=== PATIENT | female | born 1980 | race Caucasian/White ===

== ENCOUNTER 2017-05-05 08:44 | Emergency (ER) | payer MEDICAID ==
[~2017-05-05] VITALS: Ht 160 cm; Wt 102.9 kg
[~2017-05-05 08:44] MED LIST: CLARITIN 1010 MG/TAB PO; CLEOCIN HCL300 MG PO; DOXYCYCLINE 10100 MG PO; LEVAQUIN 5500 MG/TA1 PO; MOBIC 7.5MG7.5 MG PO; MUSCLE RELAXER; NAPROSYN 2250 MG/TAB PO; NO HOME MEDICATIONS; NORCO 325 MG-51 TAB PO; NORCO 325 MG-7.1 TAB PO; PROVENTIL0.09 MG/A1 IH; SALINE; ZITHROMAX 250M250 MG PO; ZITHROMAX Z PA250 MG PO; ZOFRAN ODT4 MG PO
[2017-05-05 08:49] VITALS: BP 120/69; TEMP 98.9
[2017-05-05] MEDS ORDERED: PROAIR HFA0.09 MG/AC IH (08:53)
[2017-05-05 09:55] LABS: PH 5 (5-8); URINE APPEARANCE Hazy; URINE BACTERIA Rare /hpf; URINE BILIRUBIN Negative (NEGATIVE); URINE BLOOD Negative (NEGATIVE); URINE COLOR Amber; URINE GLUCOSE Negative (NEGATIVE); URINE KETONE Trace (NEGATIVE); URINE RBC 0-2 /hpf; URINE UROBILINOGEN >=4.0 mg/dL (NEGATIVE)
[2017-05-05] MEDS ORDERED: ALBUTEROL0.83 MG/ML IH (10:04)
[2017-05-05] MEDS ORDERED: ZITHROMAX Z PA250 MG PO (10:04)
[2017-05-05] MEDS ORDERED: PREDNISONE20 MG PO (10:04)
[2017-05-05 10:17] VITALS: PULSE 78
== END 2017-05-05 10:20 | disposition home or self-care (01) ==
LOC: COL.ER 08:44
PROVIDERS: Physician Assistant
DX: J98.01 Acute bronchospasm (principal); F17.210 Nicotine dependence, cigarettes, uncomplicated; Z98.51 Tubal ligation status

== ENCOUNTER 2018-10-09 19:33 | Emergency (ER) | payer SELFPAY | END 2018-10-09 21:59 | disposition home or self-care (01) | LOC: COL.ER 19:33 | DX: J45.909 Unspecified asthma, uncomplicated (principal); F17.210 Nicotine dependence, cigarettes, uncomplicated; Z98.51 Tubal ligation status ==

== ENCOUNTER 2018-12-09 12:01 | Emergency (ER) | payer MEDICAID ==
[~2018-12-09] VITALS: Ht 160 cm; Wt 106.8 kg
[~2018-12-09 12:01] MED LIST changes: +ALBUTEROL0.83 MG/ML IH; +PREDNISONE20 MG PO; +PROAIR HFA0.09 MG/AC IH
[2018-12-09 12:16] VITALS: BP 157/72; PULSE 85; TEMP 98
[2018-12-09] MEDS ORDERED: PREDNISONE20 MG PO (13:00)
[2018-12-09] MEDS ORDERED: ZITHROMAX Z PA250 MG PO (13:00)
[2018-12-09] MEDS ORDERED: PROAIR HFA0.09 MG/AC IH (13:07)
== END 2018-12-09 13:12 | disposition home or self-care (01) ==
LOC: COL.ER 12:01
DX: J45.909 Unspecified asthma, uncomplicated (principal); H66.93 Otitis media, unspecified, bilateral; F17.210 Nicotine dependence, cigarettes, uncomplicated; Z88.0 Allergy status to penicillin; Z98.51 Tubal ligation status

== ENCOUNTER 2019-06-23 09:01 | Emergency (ER) | payer MEDICAID ==
[~2019-06-23] VITALS: Ht 160 cm; Wt 100.9 kg
[2019-06-23 09:07] VITALS: BP 144/86; TEMP 98.1
[2019-06-23] MEDS ORDERED: VALTREX1 GM PO (09:42)
[2019-06-23 10:15] VITALS: PULSE 70
== END 2019-06-23 10:15 | disposition home or self-care (01) ==
LOC: COL.ER 09:01
DX: B02.9 Zoster without complications (principal); J45.909 Unspecified asthma, uncomplicated; F17.210 Nicotine dependence, cigarettes, uncomplicated; Z98.51 Tubal ligation status

== ENCOUNTER → 2022-05-05 | Outpatient (CLI) | payer MEDICAID ==
[~2022-05-05] MED LIST changes: +OMNICEF 300MG300 MG PO; +VALTREX1 GM PO
== END ==
LOC: COL.RAD 11:41
DX: M54.2 Cervicalgia (principal)

== ENCOUNTER 2022-05-08 12:59 | Emergency (ER) | payer MEDICAID ==
[~2022-05-08] VITALS: Ht 160 cm; Wt 111.4 kg
[~2022-05-08 12:59] MED LIST changes: -OMNICEF 300MG300 MG PO
[2022-05-08 13:31] VITALS: BP 148/85; TEMP 97.5
[2022-05-08 15:13] LABS: STREP SCREEN NEGATIVE
[2022-05-08] MEDS ORDERED: PREDNISONE20 MG PO (16:09)
[2022-05-08] MEDS ORDERED: OMNICEF 300MG300 MG PO (16:09)
[2022-05-08 16:18] VITALS: PULSE 66
== END 2022-05-08 16:21 | disposition home or self-care (01) ==
LOC: COL.ER 12:59
PROVIDERS: Nurse Practitioner
DX: J01.00 Acute maxillary sinusitis, unspecified (principal); Z28.310 Unvaccinated for COVID-19; Z91.040 Latex allergy status; Z88.0 Allergy status to penicillin; Z88.1 Allergy status to other antibiotic agents; Z20.822 Contact with and (suspected) exposure to COVID-19